=== PATIENT | female | born 1950 | race Caucasian/White ===

== ENCOUNTER → 2018-03-28 10:55 | Outpatient (CLI) | payer MEDICARE, OTHER, SELFPAY ==
--- NOTE | 2018-03-28 | DI.MG.S_ITS ---
BILATERAL DIGITAL SCREENING MAMMOGRAM 3D/2D WITH CAD: 03/28/2018 CLINICAL: Routine screening. Family history of breast cancer. Comparison is made to exams dated: 01/24/2017 mammogram and 11/23/2015 mammogram - [facility]. There are scattered fibroglandular elements in both breasts. Current study was also evaluated with a Computer Aided Detection (CAD) system. No significant masses, calcifications, or other findings are seen in either breast. There has been no significant interval change. IMPRESSION: NEGATIVE There is no mammographic evidence of malignancy. A 1 year screening mammogram is recommended. This exam was interpreted at Station ID: [id number]. NOTE: For mammograms, a report in lay terms will be sent to the patient. Approximately 15% of breast malignancies will not be visualized mammographically. In the management of a palpable breast mass, a negative mammogram must not discourage biopsy of a clinically suspicious lesion. Electronically Signed By: Lucio kelelr/balbir:03/28/2018 19:04:59 letter sent: Normal Exam ACR BI-RADS Category 1: Negative 3341F
== END ==
PROVIDERS: PCP Physician Assistant; Visit Provider Physician Assistant
DX: Z12.31 Encounter for screening mammogram for malignant neoplasm of breast (principal); Z80.3 Family history of malignant neoplasm of breast
CPT/HCPCS: 77063; 77067

== ENCOUNTER 2019-04-28 12:19 | Emergency (ER) | payer MEDICARE, OTHER, SELFPAY ==
[2019-04-28 12:45] VITALS: BP 123/78; PULSE 78; RESP 20; TEMP 36.5; O2SAT 95; BMI 31.9
--- NOTE | 2019-04-28 12:51 | DI.RAD.S_ITS ---
PROCEDURE: XR KNEE RT 3V INDICATIONS: pain after moving furniture TECHNIQUE: 3 views of the knee were acquired. COMPARISON: None. FINDINGS: Bones: No fractures or dislocations. No suspicious bony lesions. There is moderate medial femorotibial joint space narrowing seen, with associated remodeling changes including subchondral sclerosis and osteophyte formation along the jointline. On the sunrise view, there is mild lateral patellofemoral joint space narrowing seen. Osteophyte formation can be seen along the margins of the patella. Soft tissues: There is a mild joint effusion. No suspicious soft tissue calcifications. IMPRESSION: Mild degenerative effusion. No acute abnormality is seen. Osteoarthritic degenerative changes are seen, which are most prominent involving the medial femorotibial compartment. If there is strong clinical suspicion for internal derangement of this joint, please consider a dedicated MRI for further evaluation (assuming that there is no contraindication to MRI). Dictated by: Mukund Devi M.D. on 04/28/2019 at 12:10 Approved by: Mukund Devi M.D. on 04/28/2019 at 12:10
--- NOTE | 2019-04-28 14:04 | ED.LOWEXIN ---
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 She states every time she puts pressure patient states on her right knee she had 8/10 sharp stabbing pain that was worse with weight-bearing and movement and better with rest, reports associated right knee mild swelling. She states she has had steroid injections in her knee for arthritis twice this year, and has been taking Advil the past few days for pain (her last dose of Advil was last night), she attempted to put on a knee brace but was unable to as it caused her more pain, and she has been using her walking stick because weight-bearing was painful. She denies any immediate pain after moving furniture, denies trauma, numbness, tingling, ecchymosis, erythema, hip pain, falls, fevers, chills, nausea, vomiting, or chest pain. She states she has had a Hale cyst many in the past, but this feels different. Related Data Allergies Allergy/AdvReac Type Severity Reaction Status Date / Time metronidazole [From FLAGYL] Allergy Unknown Unverified 12/06/17 12:35 morphine [MORPHINE] Allergy Unknown Unverified 12/06/17 12:35 Review of Systems <TAMI Christopher - Last Filed: 04/28/19 22:32> Review of Systems Narrative: REVIEW OF SYSTEMS: GENERAL: Denies fever or chills. HENT: No head trauma. EYES: No double vision or vision loss. CARDIOVASCULAR: No chest pain or syncope. RESPIRATORY: No shortness of breath or cough. GASTROINTESTINAL: No nausea, vomiting, diarrhea, or constipation. GENITOURINARY: No flank pain or dysuria. MUSCULOSKELETAL: Complains of right knee pain, see HPI. INTEGUMENTARY: No rash, lesions, or pruritus. NEURO: No numbness, tingling. PSYCH: No behavior or mood changes. PFSH <TAMI Christopher - Last Filed: 04/28/19 22:32> Medical History Arthritis (Acute) Surgical History Status post cholecystectomy Status post hysteroscopy (12/14/15) Social History Smoking Status: Never smoker Social History Smoking Status: Never smoker Exam <TAMI Christopher - Last Filed: 04/28/19 22:32> Initial Vital Signs Initial Vital Signs: Vital Signs Temperature 97.7 F 04/28/19 12:45 Pulse Rate 78 04/28/19 12:45 Respiratory Rate 20 04/28/19 12:45 Blood Pressure 123/78 04/28/19 12:45 Pulse Oximetry 95 04/28/19 12:45 PHYSICAL EXAMINATION: GENERAL: Well groomed, alert, and cooperative. Answers questions promptly and appropriately. Vital signs noted. HENT: Normocephalic, atraumatic. EYES: Symmetrical, sclera white, no periorbital swelling. CARDIOVASCULAR: S1 and S2 sounds normal. Regular rate and rhythm, no murmurs, clicks, or bruits. No pedal edema. RESPIRATORY: Normal respiratory rate, trachea midline, airway patent. No stridor, nasal flaring or accessory muscle use. Lungs are clear in all sarmiento. MUSCULOSKELETAL: Slight swelling to right knee, full extension, slightly decreased flexion due to pain. Strength is equal to lower extremities bilaterally. MCL and LCL appear to be intact, slight tenderness over palpation of the medial joint line. Drawer test negative. Patient walks with limp favoring the right leg due to right knee pain. Equal tone and mass bilaterally. No spinal tenderness or deformities. EXTREMITIES: CMS intact. No pedal edema. SKIN: Warm, dry, soft, appropriate color for ethnicity. No lesions, rashes, or wounds. NEURO: Alert and Oriented X 3. No sensory deficits. PSYCH: Appropriate affect and mood. <Dex Genao DO - Last Filed: 04/29/19 07:20> Initial Vital Signs Initial Vital Signs: Vital Signs Temperature 97.7 F 04/28/19 12:45 Pulse Rate 78 04/28/19 12:45 Respiratory Rate 20 04/28/19 12:45 Blood Pressure 123/78 04/28/19 12:45 Pulse Oximetry 95 04/28/19 12:45 Course <TAMI Christopher - Last Filed: 04/28/19 22:32> Course Course Narrative: Patient was given Toradol for pain and a walker per request. She was also given an Edgar wrap, patient refused straight leg brace as she stated she has 1 at home that does not help. Orders Ordered: Discontinued Medications Ketorolac Tromethamine (Toradol) 30 mg IM NOW ONE Stop: 04/28/19 14:00 Last Admin: 04/28/19 14:08 Dose: 30 mg Documented by: CALIXTO Vital Signs Vital signs: Vital Signs - 8 hr 04/28/19 12:45 Temperature 97.7 F Pulse Rate 78 Respiratory Rate 20 Blood Pressure 123/78 Pulse Oximetry 95 <Dex Genao DO - Last Filed: 04/29/19 07:20> Orders Ordered: Discontinued Medications Ketorolac Tromethamine (Toradol) 30 mg IM NOW ONE Stop: 04/28/19 14:00 Last Admin: 04/28/19 14:08 Dose: 30 mg Documented by: CALIXTO Vital Signs Vital signs: Vital Signs - 8 hr 04/28/19 12:45 Temperature 97.7 F Pulse Rate 78 Respiratory Rate 20 Blood Pressure 123/78 Pulse Oximetry 95 MDM - Extremity Injury (Lower) <TAMI Christopher - Last Filed: 04/28/19 22:32> Medical Records Attestation: I reviewed the patient's medical records. Lab Data Attestation: I reviewed the patient's lab results. Imaging Data R Knee: Radiologist's impression: [address] [address] XRay Report Signed Patient: Sarah Cheng LMR#: [id number] : [id number]:[id number] Age/Sex: 69 / FDate of Service: 04/28/19 Loc: ED Accession Number: [id number] Procedure: XR knee RT 3V Ordering Provider: Dex Genao D.O. PROCEDURE: XR KNEE RT 3V INDICATIONS: pain after moving furniture TECHNIQUE: 3 views of the knee were acquired. COMPARISON: None. FINDINGS: Bones: No fractures or dislocations. No suspicious bony lesions. There is moderate medial femorotibial joint space narrowing seen, with associated remodeling changes including subchondral sclerosis and osteophyte formation along the jointline. On the sunrise view, there is mild lateral patellofemoral joint space narrowing seen. Osteophyte formation can be seen along the margins of the patella. Soft tissues: There is a mild joint effusion. No suspicious soft tissue calcifications. IMPRESSION: Mild degenerative effusion. No acute abnormality is seen. Osteoarthritic degenerative changes are seen, which are most prominent involving the medial femorotibial compartment. If there is strong clinical suspicion for internal derangement of this joint, please consider a dedicated MRI for further evaluation (assuming that there is no contraindication to MRI). Dictated by: Mukund Devi M.D. on 04/28/2019 at 12:10 Approved by: Mukund Devi M.D. on 04/28/2019 at 12:10 [facility] Narrative Medical decision making narrative: Differential include arthritic pain (arthritis seen on x-ray, history of arthritis, increased used over the past few days, pain with weight-bearing), meniscal injury (history of moving arch objects were possible twisting could happen, pain along medial joint line, pain with weight-bearing), fracture (less likely due to negative x-ray). Return precautions given and follow-up instructions discussed. Discharge Plan Departure Patient Disposition: Home Clinical Impression: Acute knee pain Qualifiers: Laterality: right Qualified Code(s): M25.561 - Pain in right knee Discharge Date/Time: 04/28/19 15:14 Instructions: DI for Knee Pain Activity Restrictions/Additional Instructions: Thank you for entrusting me with your care today. As discussed, your x-ray was negative for any fractures, however it did show arthritis in the right knee. I recommend following up with your primary care provider in the next week to discuss further treatment options and further testing if indicated. He may use acetaminophen with ibuprofen at night to help you sleep. Do not use ibuprofen more than 3-5 days as it may bother your stomach, additionally, eat something when you taking medication. You may use the Edgar bandage and a walker as needed for knee pain. Return to the emergency department if you develop fevers, chest pain, shortness of breath, syncope, or your joint becomes very red with increased swelling.. Referrals: Valentine Haq PA-C [Primary Care Provider] - <Dex Genao DO - Last Filed: 04/29/19 07:20> Sign Out Provider Sign Out Attestation: I was available for consultation during this patient's emergency department encounter
[2019-04-28] MEDS: KETOROLAC 60 MG/2 ML VIAL 30 MG IM (14:08)
== END 2019-04-28 15:14 | disposition home or self-care (01) ==
PROVIDERS: Emergency Provider Nurse Practitioner; PCP Physician Assistant
DX: M25.561 Pain in right knee (principal); X50.0XXA Overexertion from strenuous movement or load, initial encounter
CPT/HCPCS: 73562; 96372; 99282; 99283; J1885

== ENCOUNTER → 2019-09-24 17:05 | Outpatient (ROUT) | payer MEDICARE, OTHER, SELFPAY ==
[2019-09-24 17:47] LABS: Add Manual Diff / Slide Review NO; Basophils Absolute Auto 0 /uL (0-100); Basophils Percent Auto 0.4 % (0-2); Eosinophils Absolute Auto 0 /uL (0-450); Eosinophils Percent Auto 0.7 % (2-4); Hematocrit 44.1 % (36-46); Hemoglobin 14.6 g/dL (12.0-16.0); Lymphocytes Absolute Auto 1000 /uL (1100-4500); Lymphocytes Percent Auto 20.7 % (25-40); Mean Corpuscular Hemoglobin 29.6 PG (26-34); Mean Corpuscular Volume 89.6 fL (80-100); Monocytes Absolute Auto 500 /uL (0-900); Monocytes Percent Auto 9.6 % (3-14); Neutrophils Absolute Auto 3500 /uL (1500-7000); Neutrophils Percent Auto 68.6 % (50-75); Platelet Count 144 X10^3/uL (150-400); Red Blood Cell Count 4.93 X10^6/uL (4.0-5.2); Red Cell Distribution Width 13.1 % (11.6-14.8); White Blood Cell Count 5.1 X10^3/uL (4.5-11.0)
[2019-09-24 18:17] LABS: Alanine Aminotransferase 17 IU/L (<35); Albumin Globulin Ratio 1.4 (1.0-2.8); Alkaline Phosphatase 96 U/L (38-126); Aspartate Aminotransferase 22 IU/L (14-36); BUN Creatinine Ratio 22.5 (6-22); Bilirubin Total 0.5 mg/dL (0.2-1.3); Blood Urea Nitrogen 18 mg/dL (7-17); Calcium 9.9 mg/dL (8.4-10.2); Carbon Dioxide 25 mmol/L (22-32); Chloride 105 mmol/L (98-107); Cholesterol 159 mg/dL (140-199); Estimated Glomerular Filt Rate > 60.0 mL/min (>60); Globulin 2.8 g/dL (1.7-4.1); Glucose 103 mg/dL (80-110); HDL Cholesterol 53 mg/dL (40-60); HEMOLYSIS < 15 (0-50); LDL Cholesterol Calculated 90 mg/dL (<100); Potassium 4.2 mmol/L (3.4-5.1); Sodium 138 mmol/L (137-145); Total Protein 6.8 g/dL (6.3-8.2); Triglycerides 81 mg/dL (35-150)
[2019-09-24 18:33] LABS: Vitamin D 25 Hydroxy (D3) 41.5 ng/mL (30.0-100.0)
[2019-09-24 18:47] LABS: TSH w/ Reflex to FT4 2.12 uIU/mL (0.47-4.68)
== END ==
PROVIDERS: PCP Physician Assistant; Visit Provider Physician Assistant
DX: M81.0 Age-related osteoporosis without current pathological fracture (principal); I10 Essential (primary) hypertension; E78.00 Pure hypercholesterolemia, unspecified; R51 Headache; E03.9 Hypothyroidism, unspecified
CPT/HCPCS: 80053; 80061; 82306; 84443; 85025

== ENCOUNTER → 2019-10-11 12:18 | Outpatient (CLI) | payer MEDICARE, OTHER, SELFPAY ==
--- NOTE | 2019-10-11 | DI.RAD.S_ITS ---
This blank DEXA report has been sent in error by the PACS system. The correct and complete report will be forthcoming in 1-2 days. Thank you for your patience and understanding. Dictated by: Deann Monteiro MD, PhD on 10/11/2019 at 13:26 Approved by: Deann Monteiro MD, PhD on 10/11/2019 at 13:27
--- NOTE | 2019-10-11 | DI.MG.S_ITS ---
BILATERAL DIGITAL SCREENING MAMMOGRAM 3D/2D WITH CAD: 10/11/2019 CLINICAL: Routine screening. Family history of breast cancer. Comparison is made to exams dated: 03/28/2018 mammogram, 01/24/2017 mammogram, and 11/23/2015 mammogram - [facility]. There are scattered fibroglandular elements in both breasts. Current study was also evaluated with a Computer Aided Detection (CAD) system. No significant masses, calcifications, or other findings are seen in either breast. There has been no significant interval change. IMPRESSION: NEGATIVE There is no mammographic evidence of malignancy. A 1 year screening mammogram is recommended. This exam was interpreted at Station ID: [id number]. NOTE: For mammograms, a report in lay terms will be sent to the patient. Approximately 15% of breast malignancies will not be visualized mammographically. In the management of a palpable breast mass, a negative mammogram must not discourage biopsy of a clinically suspicious lesion. Electronically Signed By: Luis Alberto hill/balbir:10/11/2019 18:45:37 letter sent: Normal Exam ACR BI-RADS Category 1: Negative 3341F
== END ==
PROVIDERS: PCP Physician Assistant; Referring Provider Physician Assistant; Visit Provider Physician Assistant
DX: Z12.31 Encounter for screening mammogram for malignant neoplasm of breast (principal); Z80.3 Family history of malignant neoplasm of breast; M85.851 Other specified disorders of bone density and structure, right thigh; Z78.0 Asymptomatic menopausal state; Z82.62 Family history of osteoporosis
CPT/HCPCS: 77063; 77067; 77080

== ENCOUNTER → 2020-04-06 13:18 | Outpatient (CLI) | payer MEDICARE, OTHER, SELFPAY ==
[2020-04-07 07:51] LABS: COVID19 Sendout Not Detected (Not Detect)
== END ==
PROVIDERS: PCP Physician Assistant; Visit Provider Physician Assistant
DX: Z11.59 Encounter for screening for other viral diseases (principal)
CPT/HCPCS: 87635

== ENCOUNTER 2020-04-09 14:09 | Day surgery (SDC) | payer MEDICARE, OTHER, SELFPAY ==
[2020-04-09] VITALS (7 sets, daily range): BP systolic 112–144; BP diastolic 70–86; PULSE 70–100; RESP 11–24; TEMP 36.3–36.9; O2SAT 95–98; BMI 31.9
--- NOTE | 2020-04-09 14:47 | PM.HP.1 ---
History of Present Illness History of Present Illness Date Patient Seen: 04/09/20 Time Patient Seen: 14:47 Chief complaint: SCREENING COLONOSCOPY Narrative: The patient presents for colorectal sreening. Did previous colonoscopy 5 years ago which demonstrated 7 adenomatous polyps which were removed at an outside facility.. No personal or family history of colon cancer. On further history denies any recent gastrointestinal symptoms. No nausea, vomiting, abdominal pain, loss of appetite, unexplained weight loss, change in bowel habits, diarrhea, constipation, melena, hematochezia, or bright red blood per rectum. Patient History Medical History (Updated 04/09/20 @ 14:48 by Miguel Iyer MD) Arthritis (Acute) Surgical History Status post cholecystectomy Status post hysteroscopy (12/14/15) Family & Social History Social History: household members children Tobacco & Substance use: Smoking Status Never smoker alcohol intake never Substance Use Type does not use Meds Home Medications and Allergies Home Medications Medication Instructions Recorded Confirmed Type Clohetasol 04/09/20 History atorvastatin 10 mg PO BEDTIME 04/09/20 04/09/20 History cholecalciferol (vitamin D3) 50 mcg PO DAILY 04/09/20 04/09/20 History [Vitamin D3] gabapentin 400 mg PO DAILY 04/09/20 04/09/20 History lisinopril 10 mg PO DAILY 04/09/20 04/09/20 History venlafaxine 75 mg PO DAILY 04/09/20 04/09/20 History Allergies Allergy/AdvReac Type Severity Reaction Status Date / Time metronidazole [From FLAGYL] Allergy Unknown Verified 04/09/20 14:42 morphine [MORPHINE] Allergy Unknown Verified 04/09/20 14:42 Review of Systems Review of Systems Narrative: A 10 point review of systems is negative except as noted in the HPI Exam Vital Signs (past 8 hours): - 04/09/20 14:35 Temperature 97.3 F L Pulse Rate 100 H Respiratory Rate 18 Blood Pressure 144/86 H Pulse Oximetry 96 Oxygen Delivery Method Room Air Narrative Exam Narrative: General-no acute distress, well nourished HEENT-moist mucous membranes, no scleral icterus Neck-supple, no lymphadenopathy Chest- non labored respirations, clear to auscultation bilaterally Cardiac-regular rate no peripheral edema Abdomen-soft, nontender, non distended Extremities-warm, well perfused Neurological-alert and oriented, no focal deficits Assessment & Plan Assessment and plan (1) Screening for colon cancer: Status: Acute Assessment & Plan narrative: The patient requires colorectal screening and colonoscopy is recommended. Technical details were discussed. Risks, benefits, alternatives explained. Risks including but not limited to myocardial infarction, aspiration, bleeding, pain, missed lesion, incomplete examination, need for further radiographic studies, colonic perforation, and need for major abdominal surgery were discussed. All questions were answered to their satisfaction, and they are in agreement with this plan. COVID-19 COVID-19 status: Negative
--- NOTE | 2020-04-09 15:04 | PM.OP.ENDO ---
Operative Date/Time/Diagnoses Date of procedure: 04/09/20 Time of procedure: 15:29 Pre-op diagnosis: colonic polyps Post-op diagnosis: same Procedure & Clinicians Study performed: incomplete colonoscopy Same procedure as scheduled: Yes Indications: History of colonic polyps resected 5 yrs ago presents for routine screening Surgeon: Miguel Iyer Procedure Notes SCOAP/Timeout: Performed Procedure in detail: Patient placed in left lateral recumbent position. Time out was performed. Procedural sedation was administered with Versed and Fentanyl. Examination began with a thorough inspection of the perianal area there was no evidence of fissures, fistulae, external hemorrhoids or cutaneous malignancy. The colonoscopy scope was then placed into the rectum the the lumen was insufflated with air. The scope was carefully advanced forward. The entirety of the colon was extremely tortuous. Despite repositioning, stiffening the scope, external pressure, the cecum was unable to be intubated. The extent of the colonoscopy was to the level of the hepatic flexure. The scope was then slowly withdrawn examining colon thoroughly in all directions. In the rectum the rectal columns were identified and retroflexion of the scope was performed for inspection of the distal rectum and anal canal. The colonoscopy was notable for the followin. Quality of the preparation-fair 2. Incomplete 3. No visible masses or polyps Scope withdrawal time: NA Sedation minutes: 26 Findings: other findings (incomplete colonoscopy) Specimen(s): none sent Complications: none Impression: Incomplete colonoscopy Post-procedure Recommendations: Other recommendation (will need barium enema for incomplete colonoscopy) Disposition: same day surgery
[2020-04-09] MEDS: LACTATED RINGERS 1,000 ML 200 ML IV (15:15)
[2020-04-09] MEDS: MIDAZOLAM 5 MG/5 ML VIAL IV ×2 (15:32→15:33)
[2020-04-09] MEDS: fentaNYL 250 MCG/5 ML INJ IV (15:34)
--- NOTE | 2020-04-09 16:24 | SUR.PHASEII ---
pt's colonoscopy incomplete. pt was mildly upset they were unable to complete the procedure. pt will have follow up barium enema per Dr. Iyer. Pt states the procedure was very painful.
== END 2020-04-09 16:27 | disposition home or self-care (01) ==
PROVIDERS: PCP Physician Assistant; Referring Provider Physician Assistant; Visit Provider Surgery
PROC: 0DJD8ZZ Inspection of Lower Intestinal Tract, Via Natural or Artificial Opening Endoscopic (ICD-10-PCS; CPT 45378; principal; 2020-04-09 15:15)
DX: Z12.11 Encounter for screening for malignant neoplasm of colon (principal); Z86.010 Personal history of colon polyps; Z53.09 Procedure and treatment not carried out because of other contraindication
CPT/HCPCS: G0105; 99152; J2250; J3010

== ENCOUNTER → 2020-08-25 10:58 | Outpatient (CLI) | payer MEDICARE, OTHER, SELFPAY ==
--- NOTE | 2020-08-25 | DI.RAD.S_ITS ---
PROCEDURE: XR HIP W PEL IF DONE LT 2V INDICATIONS: Pain in left hip TECHNIQUE: AP pelvis with lateral view(s) of the left hip(s). COMPARISON: None. FINDINGS: Bones: No fracture. Moderate bilateral hip joint degeneration. Scattered degenerative subchondral sclerosis and spurring. Lower lumbar facet arthropathy and spondylosis. Bilateral sacroiliac spurring and sclerosis. Soft tissues: The visualized bowel gas pattern is normal. No suspicious soft tissue calcifications. IMPRESSION: Moderate bilateral hip joint degeneration. Dictated by: Don Yanes M.D. on 08/25/2020 at 14:02 Approved by: Don Yanes M.D. on 08/25/2020 at 14:03
== END ==
PROVIDERS: PCP Physician Assistant; Referring Provider Physician Assistant; Visit Provider Physician Assistant
DX: M25.552 Pain in left hip (principal); M16.0 Bilateral primary osteoarthritis of hip
CPT/HCPCS: 73502

== ENCOUNTER → 2020-09-29 09:44 | Outpatient (CLI) | payer MEDICARE, OTHER, SELFPAY ==
--- NOTE | 2020-09-29 | DI.MRI.S_ITS ---
PROCEDURE: MR HIP LT WO CON INDICATIONS: LEFT HIP PAIN TECHNIQUE: Noncontrast coronal T1 spin echo and STIR through the bony pelvis. Coronal and axial T2 fast spin echo with fat saturation, sagittal T1 spin echo, and oblique axial T2 fast spin echo with fat saturation through the hip. COMPARISON: None. FINDINGS: Image quality: Excellent. Bones and joints: No fracture identified. Sacroiliac joints are unremarkable in signal intensity. There is lower lumbar spondylosis and facet arthropathy. This small joint effusion. Moderate to severe left hip joint degeneration with subchondral cystic change and marrow edema. No evidence of osteonecrosis. Tendons and ligaments: Gluteus minimus intact. Gluteus medius insertional tendinopathy and partial tear. Proximal iliotibial band intact. Iliopsoas tendon intact. Origin of the hamstring tendon intact. The straight and reflected heads of the rectus femoris muscle origin appear intact Ligamentum teres appears intact where visualized. Labrum: Ill-defined macerated anterosuperior labral tear. This could be age-appropriate. There is chronic adjacent subchondral cystic change and sclerosis in the acetabulum. The alpha angle of the femur is within normal limits at less than 55 degrees. Although, there is a dysplastic bump seen at the anterior femoral head neck junction on image 17/7. Soft tissues: Visualized muscles demonstrate normal bulk and internal signal. Quadratus femoris muscle normal. Proximal sciatic neurovascular bundle appears normal adjacent to the hamstring tendons. No free pelvic fluid. Bladder normal. Genitourinary structures and bowel loops appear normal where visualized. IMPRESSION: Left hip joint degeneration, with subchondral marrow signal changes and small joint effusion. Gluteus medius insertional tendinopathy Chronic appearing anterosuperior labral tear/fraying, which may be age-appropriate. Dictated by: Don Yanes M.D. on 09/29/2020 at 10:42 Approved by: Don Yanes M.D. on 09/29/2020 at 10:52
== END ==
PROVIDERS: PCP Physician Assistant; Referring Provider Physician Assistant; Visit Provider Physician Assistant
DX: M25.552 Pain in left hip (principal); M16.12 Unilateral primary osteoarthritis, left hip; M47.816 Spondylosis without myelopathy or radiculopathy, lumbar region
CPT/HCPCS: 73721

== ENCOUNTER → 2021-10-05 10:27 | Outpatient (CLI) | payer MEDICARE, OTHER, SELFPAY ==
--- NOTE | 2021-10-05 | DI.MG.S_ITS ---
BILATERAL DIGITAL SCREENING MAMMOGRAM 3D/2D WITH CAD: 10/05/2021 CLINICAL: Routine screening. Family history of breast cancer. Comparison is made to exams dated: 10/11/2019 mammogram, 03/28/2018 mammogram, and 01/24/2017 mammogram - [facility]. There are scattered fibroglandular elements in both breasts. Current study was also evaluated with a Computer Aided Detection (CAD) system. No significant masses, calcifications, or other findings are seen in either breast. There has been no significant interval change. IMPRESSION: NEGATIVE There is no mammographic evidence of malignancy. A 1 year screening mammogram is recommended. This exam was interpreted at Station ID: [id number]. NOTE: For mammograms, a report in lay terms will be sent to the patient. Approximately 15% of breast malignancies will not be visualized mammographically. In the management of a palpable breast mass, a negative mammogram must not discourage biopsy of a clinically suspicious lesion. Electronically Signed By: Elmer vivas/balbir:10/05/2021 11:22:16 letter sent: Normal Exam ACR BI-RADS Category 1: Negative 3341F
== END ==
PROVIDERS: PCP Physician Assistant; Referring Provider Physician Assistant; Visit Provider Physician Assistant
DX: Z12.31 Encounter for screening mammogram for malignant neoplasm of breast (principal); Z80.3 Family history of malignant neoplasm of breast
CPT/HCPCS: 77063; 77067

== ENCOUNTER → 2024-04-06 09:21 | Outpatient (CLI) | payer MEDICARE, OTHER, SELFPAY ==
--- NOTE | 2024-04-06 | DI.MG.S_ITS ---
BILATERAL DIGITAL SCREENING MAMMOGRAM 3D/2D WITH CAD: 04/06/2024 CLINICAL: Routine screening. Family history of breast cancer. Comparison is made to exams dated: 10/05/2021 mammogram, 10/11/2019 mammogram, and 03/28/2018 mammogram - [facility]. There are scattered areas of fibroglandular density in both breasts (category b / 25%-50% glandular tissue). Current study was also evaluated with a Computer Aided Detection (CAD) system. No significant masses, calcifications, or other findings are seen in either breast. There has been no significant interval change. IMPRESSION: NEGATIVE There is no mammographic evidence of malignancy. A 1 year screening mammogram is recommended. Based on the Tyrer Cuzick model (a risk assessment model) the patient's lifetime risk is 8.3% and her 10 year risk is 6.8%. According to the ACR, ACS, and NCCN guidelines, an annual breast MRI exam along with mammogram is recommended if the patient's lifetime risk is 20% or greater. This exam was interpreted at Station ID: [id number]. NOTE: For mammograms, a report in lay terms will be sent to the patient. Approximately 15% of breast malignancies will not be visualized mammographically. In the management of a palpable breast mass, a negative mammogram must not discourage biopsy of a clinically suspicious lesion. Electronically Signed By: Kassandra zavala/balbir:04/08/2024 10:22:05 letter sent: Normal Exam ACR BI-RADS Category 1: Negative 3341F
== END ==
LOC: MAMMO 09:22
PROVIDERS: PCP Physician Assistant; Referring Provider Physician Assistant; Visit Provider Physician Assistant
DX: Z12.31 Encounter for screening mammogram for malignant neoplasm of breast (principal); Z80.3 Family history of malignant neoplasm of breast; R92.323 Mammographic fibroglandular density, bilateral breasts
CPT/HCPCS: 77063; 77067

== ENCOUNTER 2025-01-24 12:03 | Emergency (ER) | payer MEDICARE, OTHER, SELFPAY ==
[2025-01-24 12:54] VITALS: BP 160/87; PULSE 77; RESP 16; TEMP 36.6; O2SAT 98; BMI 30.7
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
--- NOTE | 2025-01-24 15:30 | PC.NURSE ---
C-collar removed, cleared by negative CTscan, patient taking own ibuprofen
[2025-01-24 15:36] VITALS: BP 148/88; PULSE 75; RESP 18; O2SAT 99
[2025-01-24 17:43] VITALS: PULSE 83; RESP 23; O2SAT 96
[2025-01-24 17:44] VITALS: BP 156/94; PULSE 79; RESP 20; O2SAT 96
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
[2025-01-24 18:00] VITALS: PULSE 72; RESP 25; O2SAT 96
[2025-01-24 18:01] VITALS: BP 149/76; PULSE 72; RESP 24; O2SAT 96
[2025-01-24 18:53] VITALS: BMI 30.7
== END 2025-01-24 18:50 | disposition home or self-care (01) ==
PROVIDERS: Emergency Provider Student in an Organized Health Care Education/Training Program; PCP Physician Assistant
DX: S06.0X0A Concussion without loss of consciousness, initial encounter (principal); M25.512 Pain in left shoulder; M25.562 Pain in left knee; V89.2XXA Person injured in unspecified motor-vehicle accident, traffic, initial encounter
CPT/HCPCS: 70450; 70486; 72125; 99281; 99284